=== PATIENT | male | born 1990 | race Caucasian/White ===

== ENCOUNTER → 2016-10-14 | Outpatient (CLI) | payer OTHER, SELFPAY ==
[~2016-10-14] MED LIST: METHACHOLINE KIT (J7674) INH ONE
--- NOTE | 2016-10-14 18:02 | PFTRPT ---
Tech: Donna Spaulding NET MANAGER Age: 26 Sex: Male Race: Height: 71.75 Inches Weight: 169.00 Lbs BSA: 1.98 Diagnosis: R05 METHACHOLINE CHALLENGE REPORT: ORDERING PROVIDER: BETINA Randle DATE OF SERVICE: 10/14/16 INTERPRETATION: The study was of excellent technical quality. Under protocol, methacholine was administered. At a dose of 10 mg (63.875 CDUs), a 36% decline in the FEV1 was noted. The PC20 of 2.71 is clinically significant. Flow rates returned to near baseline post bronchodilator administration. IMPRESSION: Positive methacholine challenge study. MTDD
--- NOTE | 2016-10-15 02:50 | REP ---
Clinical: Acute cough . Comparison: None . Technique: PA and lateral. Findings: The mediastinum and cardiac silhouette are normal. The lung gallegos are clear and without acute consolidation, effusion, or pneumothorax. The skeletal structures are intact and normal. Impression: 1. No acute cardiopulmonary process. Signed by Adrian Mitchell MD 10/15/2016 02:41 A
== END ==
LOC: M CARPUL 17:00
PROVIDERS: ATTEND Nurse Practitioner Adult Health
DX: R05 Cough (principal); R06.02 Shortness of breath
CPT/HCPCS: 71020; J7674

== ENCOUNTER → 2018-02-09 | Outpatient (CLI) | payer OTHER | LOC: M SMT 12:00 | DX: J45.909 Unspecified asthma, uncomplicated (principal) ==

== ENCOUNTER → 2018-03-09 | Outpatient (CLI) | payer OTHER | LOC: M SLEEP 19:37 | DX: R06.83 Snoring (principal); G47.30 Sleep apnea, unspecified | CPT/HCPCS: 95811 ==